=== PATIENT | female | born 1955 | race Caucasian/White ===

== ENCOUNTER 2018-12-10 08:55 | Day surgery (SDC) | payer BC ==
[~2018-12-10 08:55] MED LIST: KETOROLAC TROMETHAMINE 0.45% 4 DROP/0.4 ML DROPERETTE OD PRN; TETRACAINE HCL 0.5% OPH SOLN 0.6 ML DROPERETTE OD PRN
[2018-12-10] MEDS: TETRACAINE HCL 0.5% OPH SOLN 4 ML OD PRN ×4 (09:21→10:01)
[2018-12-10] MEDS: CYCLOPENTOLATE 0.2%/PHENYLEPHRINE 1% OPH SOLN 2 ML OD PRN ×3 (09:22→09:45)
[2018-12-10] MEDS: BESIFLOXACIN HCL 0.6% OPH SUSP 5 ML BOTTLE OD PRN ×4 (09:22→10:24)
[2018-12-10] MEDS: TROPICAMIDE 1% OPH SOLN 3 ML OD PRN ×3 (09:22→09:45)
[2018-12-10] MEDS ORDERED: MIDAZOLAM 2 MG/2 ML INJ ONE (09:40)
[2018-12-10] MEDS ORDERED: FENTANYL CITRATE INJ/PF 100 MCG/2 ML AMPUL ONE (09:40)
[2018-12-10] MEDS: EPINEPHRINE INJ/PF 1 MG/1 ML AMPULE ONE ×2 (10:13)
[2018-12-10] MEDS: LIDOCAINE 1% INJ-PF (10 MG/ML) 30 ML SDV ONE ×2 (10:13)
[2018-12-10] MEDS: CHONDR SU A NA/HYALUR INTRAOC KIT (SURGICARE) ONE ×2 (10:13)
[2018-12-10] MEDS: DORZOLAMIDE HCL 2%/TIMOLOL MALEAT 0.5% OPH SOLN 10 ML OD PRN ×2 (10:24)
[2018-12-10] MEDS: TOBRAMYCIN SULFATE/DEXAMETH OPH OINTMENT 3.5 GM ONE ×2 (10:24)
== END 2018-12-10 11:03 | disposition home or self-care (01) ==
LOC: SC 08:55
PROVIDERS: ATTEND Ophthalmology
DX: H25.11 Age-related nuclear cataract, right eye (principal); Z98.42 Cataract extraction status, left eye; J45.909 Unspecified asthma, uncomplicated; E03.9 Hypothyroidism, unspecified; E11.9 Type 2 diabetes mellitus without complications; I10 Essential (primary) hypertension; K21.9 Gastro-esophageal reflux disease without esophagitis; K44.9 Diaphragmatic hernia without obstruction or gangrene; Z79.51 Long term (current) use of inhaled steroids; Z79.899 Other long term (current) drug therapy
CPT/HCPCS: 66984; 00142; V2632; J2250; J3490 ×4; J0171; J3010; 142

== ENCOUNTER → 2019-08-03 | Outpatient (CLI) | payer MEDICARE, BC ==
--- NOTE | 2019-08-04 10:53 | RADIOLOGY REPORT (SQ) ---
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 TECHNIQUE: Dynamic and static westbrook scale and color images acquired of both lower extremity venous sy stems. Selected spectral images acquired with additional compression and augmentation maneuvers. Imag es stored on PACS. LIMITATIONS: None. FINDINGS: RIGHT LEG COMMON FEMORAL AND FEMORAL: Normal phasicity, compression and augmentation. No visualized echogenic m aterial on westbrook scale. No defects on color images. POPLITEAL: Normal compression and augmentation. No visualized echogenic material on westbrook scale. No de fects on color images. CALF VESSELS: Normal compression and augmentation. No visualized echogenic material on westbrook scale. No defects on color image. GSV AND SSV: Normal compression. No visualized echogenic material on westbrook scale. No defects on color images. ANY DEEP VENOUS INSUFFICIENCY: No. ANY EVIDENCE OF POPLITEAL CYST: No. OTHER: No other significant finding. LEFT LEG COMMON FEMORAL AND FEMORAL: Normal phasicity, compression and augmentation. No visualized echogenic m aterial on westbrook scale. No defects on color images. POPLITEAL: Normal compression and augmentation. No visualized echogenic material on westbrook scale. No de fects on color images. CALF VESSELS: Normal compression and augmentation. No visualized echogenic material on westbrook scale. No defects on color images. GSV AND SSV: Normal compression. No visualized echogenic material on westbrook scale. No defects on color images. ANY DEEP VENOUS INSUFFICIENCY: Small amount of reflux in the femoral vein and popliteal vein. ANY EVIDENCE POPLITEAL CYST: No. OTHER: No other significant finding. IMPRESSION: NO EVIDENCE DVT OR SVT IN EITHER LEG. TECHNICAL DOCUMENTATION: JOB ID: [id number] [employer]- All Rights Reserved Reading location - IP/workstation name: [email or web address]
== END ==
LOC: SP 09:51
PROVIDERS: ATTEND Obstetrics & Gynecology
DX: I83.813 Varicose veins of bilateral lower extremities with pain (principal); M79.661 Pain in right lower leg; M79.662 Pain in left lower leg
CPT/HCPCS: 93970